=== PATIENT | female | born 2000 | race Caucasian/White ===

== ENCOUNTER 2023-01-04 13:58 | Emergency (ER) | payer BC, SELFPAY ==
[2023-01-04 14:04] VITALS: BP 109/70; PULSE 84; RESP 16; TEMP 36.4; O2SAT 100; BMI 20.2
--- NOTE | 2023-01-04 14:42 | ED.GENADULT ---
HPI - General Adult General Chief complaint: Cough Stated complaint: Chest Pain Cough Time Seen by Provider: 01/04/23 14:00 History of Present Illness HPI narrative: This 22-year-old female comes in reporting persistent cough over the past month. She has now developed pain when coughing and distinct pain in the left lower anterior chest wall. She states that she thinks she had a fever for a day or 2 when the symptoms initially started but has not had anything but cough since then. She does not report any nasal congestion, sore throat, or ear pain. She does not have any shortness of breath but does state that a deep breath and coughing causes pain. Related Data Previous Rx's Medication Instructions Recorded escitalopram oxalate 20 mg tablet 20 mg PO QDAY #30 tabs 11/12/22 acetaminophen 300 mg-codeine 30 mg 1 tab PO Q6H PRN pain #20 tabs 01/04/23 tablet Allergies Allergy/AdvReac Type Severity Reaction Status Date / Time No Known Drug Allergies Allergy Verified 01/04/23 14:10 Review of Systems Status of ROS: Reports: 10 or more systems reviewed and unremarkable except as noted in History and below Narrative: Constitutional: No fevers, no weight gain or loss. Eyes: No discharge. No vision changes. HENT: No congestion, no sore throat, no ear pain. Cardiovascular: No chest pain, no palpitations. Respiratory: No shortness of breath, no wheezes persistent cough with associated chest discomfort. Gastrointestinal: No abdominal pain, no vomiting, no diarrhea. Genitourinary: No dysuria, no hematuria. Musculoskeletal: Normal range of motion. Skin: No rashes, no pruritis. Neurological: No dizziness, weakness, sensory change, speech change. Endo/Heme/Allergies: No bruising or bleeding. No polydipsia. Pysch: no suicidality, no anxiety, no insomnia. All other systems reviewed and are negative. PFSH PFSH Family History (Updated 04/23/22 @ 15:40 by Levon Nam MD) Father Leukemia Social History (Updated 04/23/22 @ 15:40 by Levon Nam MD) Narrative: Social: [facility] at [employer]. Family in . Habits: 1 drink/wk, no tob/drugs Smoking Status: Never smoker Little interest or pleasure in doing things: not at all Feeling down, depressed, or hopeless: more than half the days Exam Narrative: Exam Narrative: Constitutional: Well-developed, well-nourished, no acute distress. HEENT: Normocephalic, atraumatic. Neck: Normal range of motion. Nontender. Supple. Heart: Regular. No murmurs. Normal rate. Intact distal pulses. Lungs: Clear to auscultation. No wheezes, rhonchi, or rales. This patient manifest distinct pain when palpating over the left lower anterior ribs. Abdomen: Normal bowel sounds. Nontender. No rebound tenderness. Genitalia: Deferred. Back: No midline tenderness. Normal range of motion. Extremities: Normal range of motion. No injury. Skin: Intact. No rash. Warm. No erythema or pallor. Neurologic: No altered sensation. No weakness. Alert and oriented. Psychiatric: No suicidality. No anxiety or depression. No insomnia. Nursing notes and vitals signs are reviewed. Const: Vital Signs, click to edit/add: Vital Signs - 24 hr 01/04/23 14:04 Temperature 97.6 F Pulse Rate [Pulse Oximeter] 84 Respiratory Rate 16 Blood Pressure [Ri ght Upper Arm] 109/70 Pulse Oximetry 100 Oxygen Delivery Me thod Room Air Course Vital Signs Vital signs: Initial Vital Signs Temperature 97.6 F 01/04/23 14:04 Temperature Source Temporal Artery Scan 01/04/23 14:04 Pulse Rate 84 01/04/23 14:04 Pulse Rhythm Regular 01/04/23 14:04 Pulse Strength 3+ Normal 01/04/23 14:04 Respiratory Rate 16 01/04/23 14:04 Blood Pressure 109/70 01/04/23 14:04 Blood Pressure Mean 83 01/04/23 14:04 Blood Pressure Position Sitting 01/04/23 14:04 Pulse Oximetry 100 01/04/23 14:04 Oxygen Delivery Method Room Air 01/04/23 14:04 Vital Signs Temperature 97.6 F 01/04/23 14:04 Pulse Rate 84 01/04/23 14:04 Respiratory Rate 16 01/04/23 14:04 Blood Pressure 109/70 01/04/23 14:04 Pulse Oximetry 100 01/04/23 14:04 Oxygen Delivery Method Room Air 01/04/23 14:04 Temperature 97.6 F 01/04/23 14:04 Pulse Rate 84 01/04/23 14:04 Respiratory Rate 16 01/04/23 14:04 Blood Pressure 109/70 01/04/23 14:04 Pulse Oximetry 100 01/04/23 14:04 Oxygen Delivery Method Room Air 01/04/23 14:04 Medical Decision Making MDM Narrative Medical decision making narrative: This patient comes in with persistent cough and now has distinct chest discomfort in the left lower anterior ribs that is reproducible with deep breath, coughing, and with certain movements. She does not report any particular injury event except for persistent coughing. Her vital signs are normal and her lungs sound clear. I did discuss lab and imaging options with the patient and in a process of shared decision making these were declined. The patient did receive a prescription for Tylenol 3. She also received a rib belt for additional relief. At the time of discharge the patient appears safe for outpatient management. The treatment plan is reviewed along with written and verbal return precautions. Reasons to return and the importance of close followup were also reviewed. Discharge Plan Discharge Clinical Impression: Acute chest wall pain, Acute upper respiratory infection Patient Disposition: Home, Self-Care Condition: Unchanged Additional Instructions: Take medication as needed and directed. Use [id number] cough medicine also as needed and directed. Follow up with MD or return if worsening. Prescriptions: New acetaminophen-codeine 300-30 mg tablet 1 tab PO Q6H PRN (Reason: pain) Qty: 20 0RF No Action escitalopram oxalate 20 mg tablet 20 mg PO QDAY Qty: 30 1RF Follow Up/Referrals: Levon Nam MD [Primary Care Provider] - Stand Alone Forms: [employer] Info Instructions
== END 2023-01-04 15:07 | disposition home or self-care (01) ==
LOC: ED 15:01
PROVIDERS: Emergency Provider Emergency Medicine Emergency Medical Services; PCP Family Medicine
DX: R07.89 Other chest pain (principal); J06.9 Acute upper respiratory infection, unspecified
CPT/HCPCS: 99283; 99284

== ENCOUNTER 2024-01-09 10:09 | Outpatient (CLI) | payer BC, SELFPAY ==
--- OUTSIDE RECORDS SUMMARY | 2024-01-09 10:11 | XMS_ITS | Clinical Summary ---
Author Name Unknown Organization [facility] Address [place], [place] [address] Care Team Providers Care Copyman Name Role Phone Pcp, No Primary Care Provider Unavailabl e Allergies No known active allergies Medications Medication Sig Dispensed Refills Start Date End Date Status escitalopram oxalate (Lexapro) 10 mg tablet Take 1 Tablet (10 mg) by mouth once daily. 0 06/06/2022 Active Family History Medical History Relation Name Comments Leukemia Father Relation Name Status Comments Father Social History Tobacco Use Types Packs/Day Years Used Date Smoking Tobacco: Never Smokeless Tobacco: Never Tobacco Cessation:Counseling Given: Yes Sex and Gender Information Value Date Recorded Sex Assigned at Not on file Gender Identity Not on file Sexual Orientation Not on file Obstetrics History Last Filed Vital Signs Vital Sign Reading Time Taken Comments Blood Pressure 103/68 06/06/2022 3:46 PM CDT Pulse 79 06/06/2022 3:46 PM CDT Temperature - - Respiratory Rate - - Oxygen Saturation 100% 06/06/2022 3:46 PM CDT Inhaled Oxygen Concentration - - Weight 58.9 kg (129 lb 12.8 oz) 06/06/2022 3:46 PM CDT Height - - Body Mass Index - - Plan of Treatment Health Maintenance Due Date Last Done Comments Tdap 2012 Depression screening for age 12+ 2013 HIV for age 15-65 2016 HPV series for age 9-26 (1 - 3-dose series) 2016 Chlamydia for age 16-24 2017 BMI (ht and wt on same day) for age 18+ 2019 Hepatitis C screening for ag e 18-79 2019 Tetanus booster 2021 Pap test for age 21-65 2022 COVID-19 vaccine series (2022-24 season) 2023 Influenza for age 9-49 05/24/2024 Pneumococcal series for age 6-64 Aged Out No longer eligible based on patient's age to complete this topic Care Teams Copyman Relationship Specialty Start Date End Date Pcp, No . PCP - General 04/30/22
[2024-01-09 15:08] LABS: Chlamydia DNA Amplified* NOT DETECTED (No Detected); GC DNA Amplified* NOT DETECTED (No Detected)
== END 2024-01-09 10:10 | disposition home or self-care (01) ==
PROVIDERS: PCP Family Medicine; Visit Provider Registered Nurse
DX: Z11.3 Encounter for screening for infections with a predominantly sexual mode of transmission (principal); Z32.02 Encounter for pregnancy test, result negative
CPT/HCPCS: 84702; 86592; 86703; 86803; 87340; 87491; 87591